=== PATIENT | male | born 1990 | race Caucasian/White ===

== ENCOUNTER 2024-04-29 22:44 | Emergency (ER) | payer MEDICAID ==
[~2024-04-29] VITALS: Ht 180.3 cm; Wt 87.0 kg
[2024-04-29 22:51] VITALS: O2SAT 98
[2024-04-30 04:28] VITALS: BP 120/70; PULSE 92; RESP 16; TEMP 36.78072; O2SAT 99
== END 2024-04-30 04:29 | disposition home or self-care (01) ==
LOC: ER 23:18 → EDBD 23:18 → ER 04-30 04:29
DX: F10.129 Alcohol abuse with intoxication, unspecified (principal); R11.10 Vomiting, unspecified; F32.9 Major depressive disorder, single episode, unspecified; Y90.9 Presence of alcohol in blood, level not specified
CPT/HCPCS: 99283